=== PATIENT | female | born 1985 | race Caucasian/White ===

== ENCOUNTER 2022-07-01 14:04 | Emergency (ER) | payer OTHER ==
[~2022-07-01] VITALS: Ht 167.6 cm; Wt 63.5 kg
== END 2022-07-01 15:48 | disposition home or self-care (01) ==
LOC: FSED 14:08
DX: M25.561 Pain in right knee (principal); S80.01XA Contusion of right knee, initial encounter; W01.0XXA Fall on same level from slipping, tripping and stumbling without subsequent striking against object, initial encounter; Y93.01 Activity, walking, marching and hiking; Y92.89 Other specified places as the place of occurrence of the external cause
CPT/HCPCS: 99283